=== PATIENT | female | born 1980 | race Caucasian/White ===

== ENCOUNTER 2017-11-04 15:18 | Emergency (ER) | payer MEDICAID, OTHER ==
[2017-11-04] MEDS: KETOROLAC 30 MG INJ IM (19:20)
== END 2017-11-04 19:45 | disposition home or self-care (01) ==
LOC: FTE 19:45
DX: R51 Headache (principal)
CPT/HCPCS: 81025; 96372; 99284-25

== ENCOUNTER 2018-08-11 15:30 | Emergency (ER) | payer MEDICAID ==
[2018-08-11] MEDS: DIPHENHYDRAMINE 50 MG CAP PO (17:45)
[2018-08-11] MEDS: predniSONE 20 MG TAB PO (17:45)
[2018-08-11 17:48] LABS: ADD MAN DIFF? NO
[2018-08-11 17:50] LABS: BASOPHILS % 0.4 % (0.0-2.0); EOSINOPHILS # 0.1 10^3/ul (0.0-0.5); EOSINOPHILS % 1.1 % (0.0-7.0); HEMATOCRIT 32.2 % (37.0-47.0); HEMOGLOBIN 10.9 g/dl (12.0-16.0); LYMPHOCYTES # 1.4 10^3/ul (0.8-2.9); LYMPHOCYTES % 15.6 % (15.0-51.0); MEAN CORPUSCULAR HEMOGLOBIN 28.7 pg (29.0-33.0); MEAN CORPUSCULAR HGB CONC 33.9 g/dl (32.0-37.0); MEAN CORPUSCULAR VOLUME 84.7 fl (82.0-101.0); MEAN PLATELET VOLUME 9.8 fl (7.4-10.4); MONOCYTE # 0.5 10^3/ul (0.3-0.9); MONOCYTES % 5.8 % (0.0-11.0); NEUTROPHILS % 75.9 % (39.0-77.0); PLATELET COUNT 304 10^3/UL (140-415); RED CELL DISTRIBUTION WIDTH 15.1 % (11.5-14.5)
[2018-08-11 17:50] LABS: WHITE BLOOD COUNT 9.2 10^3/ul (4.8-10.8)
[2018-08-11 18:05] LABS: ADD UMIC YES; UR ASCORBIC ACID NEGATIVE (NEGATIVE); UR BACTERIA MANY /HPF (NONE SEEN); UR BILIRUBIN (Dip) NEGATIVE (NEGATIVE); UR BLOOD (Dip) NEGATIVE (NEGATIVE); UR CLARITY SLIGHTLY CLOUDY (CLEAR); UR COLOR STRAW (YELLOW); UR GLUCOSE (Dip) NEGATIVE (NEGATIVE); UR KETONES (Dip) NEGATIVE (NEGATIVE); UR LEUKOCYTE ESTERASE (Dip) 1+ Leu/ul (NEGATIVE); UR NITRITE (Dip) NEGATIVE (NEGATIVE); UR RBC 5 /HPF (0-5); UR SPECIFIC GRAVITY (Dip) 1.003 (1.003-1.030); UR SQUAMOUS EPITHELIAL CELL FEW /HPF (FEW); UR TOTAL PROTEIN (Dip) NEGATIVE (NEGATIVE); UR UROBILINOGEN (Dip) NEGATIVE (NEGATIVE); UR WBC 9 /HPF (0-5)
[2018-08-11 18:13] LABS: ALANINE AMINOTRANSFERASE 17 IU/L (13-69); ALBUMIN 3.6 g/dl (3.3-4.9); ALBUMIN/GLOBULIN RATIO 1.02; ALKALINE PHOSPHATASE 72 IU/L (42-121); ANION GAP 10 (5-13); ASPARTATE AMINO TRANSFERASE 17 IU/L (15-46); BILIRUBIN,INDIRECT 0.2 mg/dl (0-1.1); BILIRUBIN,TOTAL 0.2 mg/dl (0.2-1.3); BLOOD UREA NITROGEN 3 mg/dl (7-20); CALCIUM 8.9 mg/dl (8.4-10.2); CARBON DIOXIDE 21 mmol/L (21-31); CHLORIDE 104 mmol/L (97-110); Estimated GFR > 60 mL/min (>60); GLUCOSE 80 mg/dl (70-220); POTASSIUM 3.9 mmol/L (3.5-5.1); SODIUM 135 mmol/L (135-144); TOTAL PROTEIN 7.1 g/dl (6.1-8.1)
== END 2018-08-11 18:40 | disposition home or self-care (01) ==
LOC: FTE 15:30
DX: O26.86 Pruritic urticarial papules and plaques of pregnancy (PUPPP) (principal); O23.43 Unspecified infection of urinary tract in pregnancy, third trimester; Z3A.30 30 weeks gestation of pregnancy
CPT/HCPCS: 80053; 81001; 85025; 99283

== ENCOUNTER 2018-09-29 13:32 | Inpatient (IN) | payer MEDICAID ==
[2018-09-29] MEDS ORDERED: MISOPROSTOL 200 MCG TAB PR ×2 (16:00→20:30)
[2018-09-29] MEDS ORDERED: CARBOPROST 250 MCG INJ IM ×2 (16:00→20:30)
[2018-09-29] MEDS ORDERED: CEFAZOLIN 2 GM/50 ML (PMX) 50 ML IVPB (16:00)
[2018-09-29] MEDS ORDERED: OXYTOCIN 30 UNITS/LR 500 ML IV ×2 (16:00→20:30)
[2018-09-29] MEDS ORDERED: METHYLERGONOVINE 0.2 MG INJ IM ×2 (16:00→20:30)
[2018-09-29] MEDS: LACTATED RINGER'S 1,000 ML IV ×2 (16:28→23:54)
[2018-09-29 16:38] LABS: ADD MAN DIFF? NO
[2018-09-29 16:45] LABS: BASOPHILS % 0.5 % (0.0-2.0); EOSINOPHILS # 0.1 10^3/ul (0.0-0.5); EOSINOPHILS % 0.9 % (0.0-7.0); HEMOGLOBIN 10.5 g/dl (12.0-16.0); LYMPHOCYTES # 1.4 10^3/ul (0.8-2.9); LYMPHOCYTES % 16.5 % (15.0-51.0); MEAN CORPUSCULAR HEMOGLOBIN 28.1 pg (29.0-33.0); MEAN CORPUSCULAR HGB CONC 33.9 g/dl (32.0-37.0); MEAN CORPUSCULAR VOLUME 82.9 fl (82.0-101.0); MEAN PLATELET VOLUME 10.2 fl (7.4-10.4); MONOCYTE # 0.5 10^3/ul (0.3-0.9); MONOCYTES % 6.2 % (0.0-11.0); NEUTROPHIL # 6.1 10^3/ul (1.6-7.5); NEUTROPHILS % 74.4 % (39.0-77.0); PLATELET COUNT 246 10^3/UL (140-415); RED BLOOD COUNT 3.74 10^6/ul (4.20-5.40)
[2018-09-29 16:45] LABS: WHITE BLOOD COUNT 8.2 10^3/ul (4.8-10.8)
[2018-09-29 17:05] LABS: INR 0.95; PROTIME 12.8 Sec (11.9-14.9)
[2018-09-29 17:06] LABS: PARTIAL THROMBOPLASTIN TIME 27.8 Sec (23.0-35.0)
[2018-09-29 17:33] LABS: HEPATITIS B SURFACE ANTIGEN NEGATIVE (NEGATIVE)
[2018-09-29] MEDS ORDERED: morphine SULFATE/PF (10 MG/10 ML) INJ (18:14)
[2018-09-29] MEDS ORDERED: METOCLOPRAMIDE 10 MG INJ (18:15)
[2018-09-29] MEDS ORDERED: ONDANSETRON 4 MG INJ (18:15)
[2018-09-29] MEDS ORDERED: KETOROLAC 30 MG INJ (18:23)
[2018-09-29] MEDS ORDERED: EPHEDrine 25 MG/5 ML SYG (18:46)
[2018-09-29] MEDS ORDERED: PHENYLephrine (100 MCG/ML) 10ML SYG (18:59)
[2018-09-29] MEDS ORDERED: morphine 2 MG INJ IV ×6 (19:30)
[2018-09-29] MEDS ORDERED: ONDANSETRON 4 MG INJ IV ×2 (19:30)
[2018-09-29] MEDS ORDERED: MEPERIDINE 25 MG INJ IV (19:30)
[2018-09-29] MEDS ORDERED: DIPHENHYDRAMINE 50 MG INJ IV ×2 (19:30)
[2018-09-29] MEDS ORDERED: NALOXONE (0.4 MG/ML) INJ IV (19:30)
[2018-09-29] MEDS ORDERED: NACL 0.9% 3 ML SYG IV (20:30)
[2018-09-29] MEDS: OXYTOCIN 30 UNITS/LR 500 ML IV (21:22)
[2018-09-29] MEDS: CEFAZOLIN 2 GM/50 ML (PMX) 50 ML IVPB (21:33)
[2018-09-29] MEDS: KETOROLAC 30 MG INJ IV (21:41)
[2018-09-30] MEDS: OXYTOCIN 30 UNITS/LR 500 ML IV (00:52)
[2018-09-30] MEDS: CEFAZOLIN 2 GM/50 ML (PMX) 50 ML IVPB ×2 (05:10→13:16)
[2018-09-30 07:51] LABS: ADD MAN DIFF? NO
[2018-09-30 07:54] LABS: WHITE BLOOD COUNT 10.1 10^3/ul (4.8-10.8)
[2018-09-30 07:54] LABS: BASOPHILS % 0.3 % (0.0-2.0); EOSINOPHILS % 0.1 % (0.0-7.0); HEMATOCRIT 30.9 % (37.0-47.0); HEMOGLOBIN 10.3 g/dl (12.0-16.0); LYMPHOCYTES # 0.9 10^3/ul (0.8-2.9); LYMPHOCYTES % 8.6 % (15.0-51.0); MEAN CORPUSCULAR HEMOGLOBIN 27.6 pg (29.0-33.0); MEAN CORPUSCULAR HGB CONC 33.3 g/dl (32.0-37.0); MEAN CORPUSCULAR VOLUME 82.8 fl (82.0-101.0); MONOCYTE # 0.8 10^3/ul (0.3-0.9); MONOCYTES % 7.5 % (0.0-11.0); NEUTROPHIL # 8.3 10^3/ul (1.6-7.5); NEUTROPHILS % 82.7 % (39.0-77.0); PLATELET COUNT 212 10^3/UL (140-415); RED BLOOD COUNT 3.73 10^6/ul (4.20-5.40); RED CELL DISTRIBUTION WIDTH 15.2 % (11.5-14.5)
[2018-09-30] MEDS: FERROUS SULFATE (EC) 325 MG TAB PO ×2 (10:44→20:50)
[2018-09-30] MEDS: LACTATED RINGER'S 1,000 ML IV ×3 (14:22→23:54)
[2018-09-30] MEDS: KETOROLAC 30 MG INJ IV (14:31)
[2018-09-30 16:09] LABS: RAPID PLASMA REAGIN NONREACTIVE (NR)
[2018-09-30] MEDS: IBUPROFEN 800 MG TAB PO (21:58)
[2018-10-01] MEDS: OXYCODONE/ACETAMINOPHEN (5/325) TAB PO ×3 (03:07→16:48)
[2018-10-01] MEDS: IBUPROFEN 800 MG TAB PO ×3 (05:39→21:44)
[2018-10-01] MEDS: LACTATED RINGER'S 1,000 ML IV (07:54)
[2018-10-01] MEDS: FERROUS SULFATE (EC) 325 MG TAB PO ×2 (09:07→21:10)
[2018-10-01] MEDS: LANOLIN HPA 1 PKT TOP (10:48)
[2018-10-02] MEDS: OXYCODONE/ACETAMINOPHEN (5/325) TAB PO ×2 (02:32→09:19)
[2018-10-02] MEDS: IBUPROFEN 800 MG TAB PO (05:48)
[2018-10-02] MEDS: FERROUS SULFATE (EC) 325 MG TAB PO (09:07)
[2018-10-02] MEDS: DIPHTH/TET/ACEL PERTUSS (ADULT) 0.5 ML VIAL IM* (10:07)
== END 2018-10-02 12:52 | disposition home or self-care (01) | DRG 788 ==
LOC: OBT 13:32 → L-D 13:33 → OBT 16:00 → L-D 16:00 → PP1 22:20
PROVIDERS: Obstetrics & Gynecology
PROC: 10D00Z1 Extraction of Products of Conception, Low, Open Approach (ICD-10-PCS; principal; 2018-09-29 17:30)
DX: O32.8XX0 Maternal care for other malpresentation of fetus, not applicable or unspecified (principal); O34.211 Maternal care for low transverse scar from previous cesarean delivery; Z3A.37 37 weeks gestation of pregnancy; Z37.0 Single live birth; Z23 Encounter for immunization
CPT/HCPCS: 76815; 76818; 85025; 85610; 85730; 86592; 86850; 86900; 86901; 87340; 90715; 99464